=== PATIENT | female | born 1990 | race Caucasian/White ===

== ENCOUNTER 2021-09-16 08:27 | Outpatient (REF) | payer OTHER, SELFPAY ==
[2021-09-16 15:34] LABS: CT PCR NOT DETECTED (Not Detect.); NG PCR NOT DETECTED (Not Detect.)
[2021-09-17 09:44] LABS: BV Int Neg Control Negative (Negative); BV Int Pos Control Positive (Positive)
[2021-09-19 02:47] LABS: HPV mRNA E6/E7 rflx Not Detected (Not Detected)
== END 2021-09-16 08:28 | disposition home or self-care (01) ==
LOC: HO.LAB 08:27
PROVIDERS: PCP Nurse Practitioner Family; Visit Provider Advanced Practice Midwife
DX: Z01.411 Encounter for gynecological examination (general) (routine) with abnormal findings (principal); Z11.51 Encounter for screening for human papillomavirus (HPV); R10.2 Pelvic and perineal pain; Z78.9 Other specified health status
CPT/HCPCS: 87480; 87491; 87510; 87591; 87624; 87660; 88142

== ENCOUNTER 2021-10-19 10:02 | Outpatient (REF) | payer OTHER, SELFPAY ==
--- NOTE | ~2021-10-19 | US_ITS ---
EXAMINATION: US PELVIS CLINICAL INFORMATION: Pelvic and perineal pain COMPARISON: Previous pelvic ultrasound August 2016 TECHNIQUE: Ultrasound of the pelvis is performed using both transabdominal and transvaginal transducers along with Doppler. Transvaginal imaging is performed due to inadequate visualization transabdominally. FINDINGS: Uterus: The uterus is anteverted and measures 8.7 x 4.9 x 6.3 cm. The double wall endometrial thickness is 7 mm. The uterus is smooth in contour and has normal myometrial echogenicity. No visible fibroid. The IUD seen August 2016 is no longer seen. Adnexa: Both ovaries are visualized and are normal-appearing. Right ovary measures 3.5 x 2.1 x 2.8 cm. There is a 1.8 x 1.7 x 1.7 cm simple right ovarian cyst. Left ovary measures 3.3 x 1.8 x 2.3 cm. US/US pelvic and transvaginal IMPRESSION: Normal pelvic ultrasound.
== END 2021-10-19 10:03 | disposition home or self-care (01) ==
LOC: HO.HMGCX 10:02
PROVIDERS: PCP Family Medicine; Visit Provider Advanced Practice Midwife
DX: R10.2 Pelvic and perineal pain (principal); Z78.9 Other specified health status
CPT/HCPCS: 76830; 76856

== ENCOUNTER → 2021-10-21 09:38 | Outpatient (BNVA) | payer OTHER, SELFPAY | PROVIDERS: PCP Family Medicine; Visit Provider Advanced Practice Midwife ==

== ENCOUNTER 2022-02-19 20:28 | Emergency (ER) | payer OTHER, SELFPAY ==
[2022-02-19 20:36] VITALS: BP 118/70; PULSE 75; RESP 17; TEMP 36.4; O2SAT 98; BMI 22.7
--- NOTE | 2022-02-19 22:23 | ED_ITS ---
HPI - Wound/Laceration General Chief Complaint: Wound/Laceration Stated Complaint: lac on finger Time Seen by Provider: 02/19/22 21:23 Source: patient Mode of arrival: ambulatory Limitations: no limitations History of Present Illness HPI narrative: 31-year-old female no significant medical history presents to the emergency department with a small laceration to her left index finger status post cutting herself accidentally with a steak knife. Patient tells me that this was a clean knife. She tells me she is up to date on a tetanus shot. She tells me she has full range of motion to that finger and she is able to feel the finger. Denies numbness or tingling. Onset (ago): hour(s) (2) Location: other (left index finger ) Place: home Patient tetanus UTD: Yes Context: accidental Associated symptoms: none Related Data Previous Rx's Medication Instructions Recorded albuterol sulfate 90 mcg/actuation 2 puff INHALATION Q4-6H PRN 30 08/26/21 aerosol inhaler (ProAir HFA) Days #8.5 g amitriptyline 10 mg tablet 10 mg PO BEDTIME 30 Days #30 tab 08/26/21 [id number]-pjuuifmbaelcj-lpscwusg 1 cap PO Q8H PRN #20 cap 09/09/21 50 mg-300 mg-40 mg capsule (Fioricet) cephalexin 500 mg tablet 500 mg PO Q6H 7 Days #28 tab 02/19/22 doxycycline hyclate 100 mg capsule 100 mg PO BID 7 Days #14 cap 02/19/22 Allergies Allergy/AdvReac Type Severity Reaction Status Date / Time No Known Allergies Allergy Verified 02/19/22 20:34 [No Known Allergies*] Review of Systems Review of Systems: Constitutional : No Fever, No Chills, Cardiovascular : No Chest Pain, No SOB Respiratory : No Dyspnea Gastrointestinal : No abdominal pain Musculoskeletal : No Joint Swelling Skin : No rash, positive skin laceration Neuro : No Weakness, No Numbness Psych : No SI/HI Yes all other systems are reviewed and are negative [facility] Past Medical History Attestation statement: The following information was validated with the patient. Source: old records reviewed and nursing notes reviewed Surgical History History of (~2011) Social History Social History Housing: House Patient Tobacco Use Status: Never used Tobacco e-Cigarette/Vaping Use: Never Used Advance Directives: No Advance Directives Information Provided: No Current occupational status: employed Gender identity: Female Physical Exam Vital Signs: Vital Signs: Last Vital Signs Temp 97.6 F 02/19/22 20:36 Pulse 75 02/19/22 20:36 Resp 17 02/19/22 20:36 BP 118/70 02/19/22 20:36 Pulse Ox 98 02/19/22 20:36 BMI result Body Mass Index 22.7 Vital signs stable. Appearance: Alert.? Oriented X3.? No acute distress.? Head: Normocephalic, atraumatic, no step-offs or deformities Eyes: Pupils equal, round and reactive to light.? ENT: Pharynx normal.? Neck: Normal inspection.? Neck supple.? CVS: Normal heart rate and rhythm.? Pulses normal.? Respiratory: No respiratory distress.? Breath sounds normal.? Abdomen: Soft and nontender.? Skin: Skin warm and dry.? Normal skin color.? Normal skin turgor.?+ 3 cm laceration to the left index finger, less than 2nd capillary refill to that di git, sensation intact, motor intact no gross abnormalities Extremities: No lower extremity edema.? No calf ttp. 5/5 strength to bilateral upper and lower extremities Neuro: Oriented X 3.? No motor deficit.? No sensory deficit. CN 2-12 intact Course Reevaluation(s) Reevaluation #1: Patient initially did not want sutures however I feel as though sutures are appropriate for this patient. She agreed to sutures. Patient refusing x-ray of the hand. At this time patient will be discharged home with antibiotics, advised her to return in 7-10 days for suture removal. Comfortable discharge home Time: 22:26 MDM - Wound/Laceration MDM Narrative Medical decision making narrative: 2224 31-year-old female presents with an accidental laceration to head the distal aspect of left index finger. Up-to-date on tetanus shot. Physical examination significant for + 3 cm laceration to the left index finger, less than 2nd capillary refill to that digit, sensation intact, motor intact no gross abnormalities Plan at this time is x-ray to rule out fracture, suturing. Medical Records Attestation: I reviewed the patient's medical records. Lab Data Attestation: I reviewed the patient's lab results. Critical Care Time Critical Care Time Critical Care Time: No Discharge Plan Discharge Clinical Impression: Laceration Patient Disposition: Home, Self-Care Additional Instructions: Take your medications as prescribed. If you were prescribed antibiotics today, it is important that you take your medication to their entirety, do not skip any doses, do not finish them early. Follow-up with your primary care provider this week. Return in 7-10 days for suture removal. If you notice any signs of infection such as redness, fevers, chills, discharge from the site, swelling, inability to feel your finger please return sooner Return to the emergency department with new or worsening symptoms. Such as feve rs, chills, chest pain, shortness of breath, nausea, vomiting, dizziness, headache, vision changes, lethargy In case of emergency call 911 Prescriptions: New doxycycline hyclate 100 mg capsule 100 mg PO BID 7 Days Qty: 14 0RF cephalexin 500 mg tablet 500 mg PO Q6H 7 Days Qty: 28 0RF No Action [id number]-csbxowtnzvhzd-jmph [Fioricet] 50-300-40 mg capsule 1 cap PO Q8H PRN (Reason: pain) Qty: 20 0RF albuterol sulfate [ProAir HFA] 90 mcg/actuation HFA aerosol inhaler 2 puff inhalation Q4-6H PRN (Reason: shortness of breath or wheezing) 30 Days Qty: 8.5 1RF amitriptyline 10 mg tablet 10 mg PO BEDTIME 30 Days Qty: 30 2RF Referrals: Physician,Unknown J [Primary Care Provider] - Stand Alone Forms: Work/School Release
[2022-02-19] MEDS: Ondansetron ODT 4 MG TAB.RAPDIS TRANSLINGU (22:37)
[2022-02-19] MEDS: Lidocaine HCl 2 % MPF 5 ML VIAL SUBCUT (22:37)
== END 2022-02-19 22:42 | disposition home or self-care (01) ==
PROVIDERS: Emergency Provider Internal Medicine
DX: S61.211A Laceration without foreign body of left index finger without damage to nail, initial encounter (principal); W26.0XXA Contact with knife, initial encounter; Y93.9 Activity, unspecified; Y92.009 Unspecified place in unspecified non-institutional (private) residence as the place of occurrence of the external cause; Y99.9 Unspecified external cause status; Z79.899 Other long term (current) drug therapy
CPT/HCPCS: 12002; 99283; 99284

== ENCOUNTER 2022-03-26 11:55 | Emergency (ER) | payer OTHER, SELFPAY | END 2022-03-26 13:45 | disposition left against medical advice (07) | PROVIDERS: Emergency Provider Emergency Medicine | DX: O26.891 Other specified pregnancy related conditions, first trimester (principal); R10.9 Unspecified abdominal pain; Z3A.01 Less than 8 weeks gestation of pregnancy ==

== ENCOUNTER 2024-02-24 00:26 | Emergency (ER) | payer MEDICAID, SELFPAY ==
[2024-02-24 00:33] VITALS: BP 127/65; PULSE 92; RESP 16; TEMP 36.8; O2SAT 98; BMI 26.6
== END 2024-02-24 00:47 | disposition left against medical advice (07) ==
PROVIDERS: Emergency Provider Emergency Medicine
DX: R11.2 Nausea with vomiting, unspecified (principal); Z53.21 Procedure and treatment not carried out due to patient leaving prior to being seen by health care provider
CPT/HCPCS: 99281

== ENCOUNTER 2024-02-24 05:12 | Inpatient (IN) | payer MEDICAID, SELFPAY ==
[2024-02-24] VITALS (21 sets, daily range): BP systolic 100–122; BP diastolic 45–70; PULSE 63–93; RESP 14–20; TEMP 36.3–37.2; O2SAT 94–100; BMI 26.7
--- NOTE | ~2024-02-24 | CT_ITS ---
EXAMINATION: CT ABDOMEN AND PELVIS WITH CONTRAST CLINICAL INFORMATION: Upper abdominal pain, nausea and vomiting COMPARISON: Ultrasound abdomen 09/14/2016. TECHNIQUE: Multidetector volumetric images were obtained from the superior aspect of the liver through the pubic symphysis following administration 85 mL of Omnipaque 350 intravenous contrast. Sagittal and coronal reformatted images were obtained on the technologist's workstation. Oral contrast: No This CT examination was performed using dose optimization techniques as appropriate, variously including the following: *Automated exposure control *Adjustment of mA and/or kV according to patient size (this includes techniques or standardized protocols for targeted exams where dose is matched to indication/reason for exam; i.e. extremities or head) *Use of iterative reconstruction technique DLP: 575 mGy-cm FINDINGS: LUNG BASES: Minimal left basilar atelectasis. No pleural effusions. LIVER, GALLBLADDER, AND BILIARY TREE: The liver is normal in size, shape, and attenuation. Subcentimeter hypodensities in the right hepatic lobe segment 8 and the left hepatic lobe which are too small to characterize. The gallbladder is unremarkable with no evidence of radiopaque gallstones, gallbladder wall thickening, or obvious pericholecystic inflammatory changes. PANCREAS: Unremarkable. SPLEEN: Unremarkable. ADRENAL GLANDS: Unremarkable. KIDNEYS AND URETERS: The left kidney demonstrates a double collecting system. The right kidney is normal in size and shape. Bilateral renal medullary pyramids calcifications. No renal calculus or hydroureteronephrosis. There is short segment wall enhancement involving the mid to distal right ureter adjacent to the inflammatory changes in the right lower quadrant, series 3 images 49 through 59. BLADDER: Unremarkable. GASTROINTESTINAL TRACT: The appendix is dilated measuring up to 1.4 cm with wall enhancement and moderate surrounding fat stranding, series 3 image 52. There is a hyperattenuating 0.6 cm focus within the dilated appendix which may represent an appendicolith, series 6 image 33. There is wall thickening of the adjacent cecum which is likely reactive. No evidence of free air. No significant free fluid. The stomach and small bowel are nondilated. Moderate colonic stool burden. ABDOMINAL WALL: Small fat-containing umbilical hernia. LYMPH NODES: Few borderline prominent nonenlarged right lower quadrant mesenteric lymph nodes which are likely reactive. There is no abdominopelvic lymphadenopathy. VASCULAR: Abdominal aorta is nonaneurysmal. PELVIC VISCERA: The uterus is not enlarged. The ovaries are not well assessed on CT. However there is 1.8 cm dominant follicle/simple cyst in the right ovary, for which no dedicated follow-up imaging is required.. OSSEOUS STRUCTURES: No acute or suspicious osseous abnormality. CT/CT abdomen pelvis w IV con IMPRESSION: Dilated appendix measuring up to 1.4 cm with wall enhancement and moderate surrounding fat stranding. Few prominent nonenlarged surrounding mesenteric lymph nodes. Findings are concerning for acute appendicitis. No evidence of free air or significant free fluid. Wall thickening of the adjacent cecum which is likely reactive. Short segment wall urothelial enhancement involving the mid to distal right ureter adjacent inflammatory changes in the right lower quadrant which may be reactive. Correlate with urinalysis for to assess for urinary tract infection. Double left renal collecting system. Renal medullary pyramid calcifications bilaterally which can be seen with medullary sponge kidney, hyperparathyroidism or other metabolic disorders. This Critical Result was discussed with Shweta Dick NP at 8:55am on 02/24/2024 and it was ascertained that the content and urgency of the report was understood at the time of direct communication.
[2024-02-24 05:48] LABS: Basophils Percent Auto 0.2 % (0-2); Eosinophils Percent Auto 0.2 % (0-4); Hematocrit 43.6 % (37.0-47.0); Hemoglobin 15.4 g/dl (12.0-16.0); Imm Gran Abs Auto 0.05 X10*3/uL (0.00-0.03); Imm Gran Pct Auto 0.3 % (0.0-0.4); Lymphocytes Absolute Auto 2.2 X10*3/uL (1.2-4.9); Lymphocytes Percent Auto 14.1 % (20-40); MANUAL DIFF FLAG NO; Mean Corpuscular HGB Conc 35.3 g/dl (31.0-35.0); Mean Corpuscular Hemoglobin 31.2 pg (27.0-33.0); Mean Corpuscular Volume 88.4 fL (80.0-98.0); Mean Platelet Volume 10.7 fL (9.4-12.3); Monocytes Percent Auto 6.1 % (2-11); Neutrophils Absolute Auto 12.5 x10*3/uL (2.0-8.3); Neutrophils Percent Auto 79.1 % (45-73); Platelet Count 220 X10*3/uL (160-400); Red Blood Count 4.93 X10*6/uL (4.20-5.50); Red Cell Distribution Width 11.8 % (11.0-16.0); White Blood Count 15.8 X10*3/uL (4.8-10.8)
[2024-02-24 06:02] LABS: Alanine Aminotransferase 10 U/L (0-31); Albumin Level 4.7 g/dL (3.5-5.0); Alkaline Phosphatase 85 U/L (39-117); Anion Gap 13 (12-20); Aspartate Amino Transferase 13 U/L (5-31); Bilirubin Total 0.8 mg/dL (0.0-1.0); Blood Urea Nitrogen 5 mg/dL (9-16); Carbon Dioxide 29 mmol/L (22-29); Chloride 101 mmol/L (96-108); Creatinine Clr Calc Pharmacy 123.8; Estimated Glomerular Filt Rate > 60; Glucose Random 113 mg/dL (60-115); Lipase 18 U/L (8-78); Potassium 3.5 mmol/L (3.3-5.1); Sodium 139 mmol/L (135-145); Total Protein 8.7 g/dL (6.5-8.0)
[2024-02-24 06:02] LABS: Appearance Urine Clear; Color Urine Yellow; Glucose Urine UA Negative (Negative); Leukocyte Esterase Urine Negative (Negative); Nitrite Urine Negative (Negative); PH 8.5 (5.0-9.0); Specific Gravity - Urine <= 1.005 (1.005-1.025); Urine Blood Negative (Negative); Urine Ketones Trace mg/dL (Negative); Urine Protein Negative (Neg-Trace)
[2024-02-24 06:04] LABS: UPreg QC Valid YES; Urine Pregnancy NEGATIVE (NEGATIVE)
[2024-02-24 06:07] LABS: Bacteria Urine None Seen (None Seen); Hyaline Casts Urine 0-2 /LPF (0-2); RBC Urine 0-2 /HPF (0-2); Squamous Epithelial Cell Urine 0-2 /HPF (0-2); WBC Urine 0-5 /HPF (0-5)
--- NOTE | 2024-02-24 06:58 | ED_ITS ---
HPI - Abdominal Pain General Chief Complaint: Abdominal Pain Stated Complaint: gen med Time Seen by Provider: 02/24/24 06:24 Source: patient Mode of arrival: ambulatory Limitations: no limitations History of Present Illness HPI narrative: Patient is a 33-year-old female who presents to the emergency department for evaluation of diffuse upper abdominal pain. She reports pain to be severe for the past 2 days. She reports that she took plxn-ezc-roleqkz physician's choice digestive enzymes with prebiotics and probiotics (this came as a recommendation from a doctor she was previously seeing due to constant bloated sensation with many different foods). The first day she took them she felt okay, the 2nd day she began developing this pain with nausea and vomiting. Reports she is unable to tolerate eating at all without vomiting. She has trialed Pepcid Zofran and Tums at home without any relief. Related Data Home Medications ?Medication ?Instructions ?Recorded ?Confirmed dextroamphetamine-amphetamine 10 1 tab PO QAM 02/24/24 02/24/24 mg tablet Allergies Allergy/AdvReac Type Severity Reaction Status Date / Time No Known Allergies Allergy Verified 02/24/24 14:34 [No Known Allergies*] Review of Systems Review of Systems Yes all other systems are reviewed and are negative [facility] Past Medical History Attestation statement: The following information was validated with the patient. Source: old records reviewed Surgical History History of (~2011) Social History Social History Housing: House Patient Tobacco Use Status: Never used Tobacco Smoked in Last 30 Days: No e-Cigarette/Vaping Use: Never Used Use of substances other than those prescribed or required for medical reasons: Yes Substance Use Frequency: Daily Are you DNR?: No Advance Directives: No Advance Directives Information Provided: No Patient : No Current occupational status: employed Gender identity: Female Physical Exam ED Vital Signs: Vital Signs - 24 hr 02/24/24 05:16 02/24/24 08:20 02/24/24 10:55 Temperature 98.3 F Pulse Rate 91 78 69 Respiratory Rate 18 15 16 Blood Pressure 117/67 105/54 L 100/49 L Pulse Oximetry 97 100 99 Oxygen Delivery Method Room Air Room Air Room Air 02/24/24 14:35 Temperature 98.9 F Pulse Rate 77 Respiratory Rate 16 Blood Pressure 118/70 Pulse Oximetry 98 Oxygen Delivery Method Room Air BMI result Body Mass Index 26.7 Appearance: Alert.?Oriented to person, place and time. No acute distress.?Normal affect. Eyes: Pupils equal, round and reactive to light.? ENT: Pharynx normal.?? Neck: Normal inspection.? Neck supple.?? CVS: Heart sounds normal. Normal heart rate and rhythm.? Pulses normal.?? Respiratory: No respiratory distress.? Lung sounds clear to auscultation bilaterally?? Abdomen: Soft with diffuse upper abdominal tenderness and RLQ tenderness upon palpation. Negative Reyes sign. No rigidity. Mild guarding.. Normoactive bowel sounds. No pulsatile mass.??No CVA tenderness Skin: Skin warm and dry.? Normal skin color.? Extremities: No lower extremity edema.? Neuro: Moves all extremities spontaneously. Sensation intact bilaterally. CN II- XII intact. No focal neuro deficits. Ambulates with normal steady gait. Course Reevaluation(s) Reevaluation #1: Received call from radiology, CT concerning for acute appendicitis, uncomplicated. Patient updated on these findings. Covered with ceftriaxone and metronidazole. Consulting general surgery; Dr. Cifuentes. Time: 08:55 Reevaluation #2: Patient was evaluated by Dr. Baca, plan for laparoscopic possible open appendectomy due to presence of fecalith and unlikely to have response to antibiotics. Patient agreeable for surgery. Medical Decision Making Medical Decision Making MDM Narrative: Patient is a 33-year-old female who presents emergency department for evaluation of upper abdominal pain with nausea and vomiting as per HPI. At the time my examination she appears significantly uncomfortable, she is in tears, is known to be guarding the upper abdomen and actively dry heaving. Will obtain CBC to evaluate for leukocytosis/ anemia, CMP and lipase to evaluate for abnormal electrolytes /abnormal renal function/ abnormal hepatic/biliary function, CT of the abdomen and pelvis and Urinalysis. Will trial management of symptoms at this time with Reglan/Toradol/Pepcid IV, in addition to Maalox with lidocaine viscous. Differential Diagnosis Differential Diagnoses: The differential diagnosis associated with the presentation includes (Gastritis, PUD, cholelithiasis, cholecystitis, pancreatitis, appendicitis, gastroenteritis, viral syndrome. Suspect less likely SBO) Admission/Observation Consideration of admission/observation: Escalation of care including admission/observation considered (See narrative above and course narrative for further detail) Consult Healthcare Provider Management of the patient was discussed with: [employer] Program Specialist (See course narrative) Lab Data MDM Lab Attestation statement: I reviewed the patient's lab results. CBC reveals leukocytosis with left shift, no anemia, no electrolyte derangement, no ZUHAIR, LFTs within normal range. Urinalysis without evidence of infection. HCG negative. 02/24/24 05:42 02/24/24 05:42 Labs: Lab Results 02/24/24 02/24/24 02/24/24 Range/Units 05:42 05:43 09:33 WBC 15.8 H (4.8-10.8) X10*3/uL RBC 4.93 (4.20-5.50) X10*6/uL Hgb 15.4 (12.0-16.0) g/dl Hct 43.6 (37.0-47.0) % MCV 88.4 (80.0-98.0) fL MCH 31.2 (27.0-33.0) pg MCHC 35.3 H (31.0-35.0) g/dl RDW 11.8 (11.0-16.0) % Plt Count 220 (160-400) X10*3/uL MPV 10.7 (9.4-12.3) fL Immature Gran % (Auto) 0.3 (0.0-0.4) % Neut % (Auto) 79.1 H (45-73) % Lymph % (Auto) 14.1 L (20-40) % Walker % (Auto) 6.1 (2-11) % Eos % (Auto) 0.2 (0-4) % Baso % (Auto) 0.2 (0-2) % Lymph # (Auto) 2.2 (1.2-4.9) X10*3/uL Walker # (Auto) 1.0 (0.1-1.2) X10*3/uL Eos # (Auto) 0.0 (0.0-0.4) X10*3/uL Baso # (Auto) 0.0 (0.0-0.2) X10*3/uL Abs Immat Gran (auto) 0.05 H (0.00-0.03) X10*3/uL Absolute Neuts (auto) 12.5 H (2.0-8.3) x10*3/uL Absolute Nucleated RBC 0.000 (0.0-0.012) X10*3/uL Nucleated RBC % (auto) 0.0 (0.0-0.2) /100WBC Sodium 139 (135-145) mmol/L Potassium 3.5 (3.3-5.1) mmol/L Chloride 101 (96-108) mmol/L Carbon Dioxide 29 (22-29) mmol/L Anion Gap 13 (12-20) BUN 5 L (9-16) mg/dL Creatinine 0.68 (0.5-1.4) mg/dL Estim Creat Clear Calc 123.8 Estimated GFR > 60 Random Glucose 113 (60-115) mg/dL Lactic Acid 1.0 (0.5-2.0) mmol/L Calcium 10.0 (8.4-10.2) mg/dL Total Bilirubin 0.8 (0.0-1.0) mg/dL AST 13 (5-31) U/L ALT 10 (0-31) U/L Alkaline Phosphatase 85 (39-117) U/L Total Protein 8.7 H (6.5-8.0) g/dL Albumin 4.7 (3.5-5.0) g/dL Lipase 18 (8-78) U/L Urine Color Yellow Urine Appearance Clear Urine pH 8.5 (5.0-9.0) Ur Specific [place] <= 1.005 (1.005-1.025) Urine Protein Negative (Neg-Trace) mg/dL Urine Glucose (UA) Negative (Negative) mg/dL Urine Ketones Trace (Negative) mg/dL Urine Blood Negative (Negative) Urine Nitrite Negative (Negative) Ur Leukocyte Esterase Negative (Negative) Urine RBC 0-2 (0-2) /HPF Urine WBC 0-5 (0-5) /HPF Ur Squamous Epith Cells 0-2 (0-2) /HPF Urine Bacteria None Seen (None Seen) Hyaline Casts 0-2 (0-2) /LPF Urine Test NEGATIVE (NEGATIVE) Independent Interpretation I performed an independent interpretation of an: CT Scan (No cholelithiasis, cholecystitis. No free air.) Radiology Impression Discussion of test interpretation with radiology: I have reviewed the radiologist's reading. Radiologist Impression: CT/CT abdomen pelvis w IV con IMPRESSION: Dilated appendix measuring up to 1.4 cm with wall enhancement and moderate surrounding fat stranding. Few prominent nonenlarged surrounding mesenteric lymph nodes. Findings are concerning for acute appendicitis. No evidence of free air or significant free fluid. Wall thickening of the adjacent cecum which is likely reactive. Short segment wall urothelial enhancement involving the mid to distal right ureter adjacent inflammatory changes in the right lower quadrant which may be reactive. Correlate with urinalysis for to assess for urinary tract infection. Double left renal collecting system. Renal medullary pyramid calcifications bilaterally which can be seen with medullary sponge kidney, hyperparathyroidism or other metabolic disorders. Medications Administered Generic Name Dose Route Start Last Admin Trade Name Freq PRN Reason Stop Dose Admin Acetaminophen 1,000 mg in 100 mls @ 400 mls/hr 02/24/24 10:30 02/24/24 11:54 Ofirmev IV 02/25/24 04:44 Infused Q6H JOCELYN Infusion Dextrose/Lactated Ringer's 1,000 mls @ 125 mls/hr 02/24/24 10:30 02/24/24 12:40 D5lr IVCONT 125 mls/hr .Q8H JOCELYN Administration Discontinued Medications Generic Name Dose Route Start Last Admin Trade Name Freq PRN Reason Stop Dose Admin Al Hydroxide/Mg Hydroxide 30 ml 02/24/24 06:50 02/24/24 07:13 Magnesium Hydrox/Alum Hydrox 30 Ml Oral.Susp PO 02/24/24 06:51 30 ml ONCE ONE Administration Famotidine 20 mg 02/24/24 06:50 02/24/24 07:15 Famotidine/Pf 20 Mg/2 Ml Vial IVPUSH 02/24/24 06:51 20 mg ONCE ONE Administration Sodium Chloride 1,000 mls @ 999 mls/hr 02/24/24 08:00 02/24/24 10:09 Ns IV 02/24/24 09:00 Infused .Q1H1M JOCELYN Infusion Ceftriaxone Sodium 1 gm/ 50 mls @ 100 mls/hr 02/24/24 09:03 02/24/24 10:39 Sodium Chloride IV 02/24/24 09:32 Infused ONCE ONE Infusion Metronidazole 500 mg in 100 mls @ 100 mls/hr 02/24/24 09:03 02/24/24 11:43 Flagyl IV 02/24/24 10:02 Infused ONCE ONE Infusion Iohexol 100 ml 02/24/24 08:19 02/24/24 08:19 Iohexol 350 Mg/Ml 100 Ml Infus..Btl IV 02/24/24 08:20 85 ml ONCE ONE Administration Ketorolac Tromethamine 30 mg 02/24/24 06:50 02/24/24 07:09 Ketorolac Tromethamine 30 Mg/Ml Vial IVPUSH 02/24/24 06:51 30 mg ONCE ONE Administration Lidocaine HCl 15 ml 02/24/24 06:50 02/24/24 07:13 Lidocaine Hcl Viscous 2 % 15 Ml Solution MUCOUS MEM 02/24/24 06:51 15 ml ONCE ONE Administration Lidocaine HCl 1 appl 02/24/24 10:41 02/24/24 10:46 Lidocaine 4 % Cream Kit TOPICAL 02/24/24 10:42 1 appl ONCE ONE Administration Protocol Metoclopramide HCl 10 mg 02/24/24 06:50 02/24/24 07:10 Metoclopramide Hcl 10 Mg/2 Ml Vial IVPUSH 02/24/24 06:51 10 mg ONCE ONE Administration Scopolamine 1.5 mg 02/24/24 14:57 02/24/24 14:51 Scopolamine 1.5 Mg Patch.Td.3 EAR-BEHIND 02/24/24 14:58 1.5 mg ONCE ONE Administration Critical Care Time Critical Care Time Critical Care Time: Yes Total Critical Care Time: 45 Attestation: I personally attest to this critical care time spent taking care of the patient exclusive of all other billable procedures was approximately 45 minutes including initial evaluation of patient, ordering tests, CT interpretation, pain management, medical consultation, documentation, re-evaluation. Discharge Plan Discharge Clinical Impression: Acute appendicitis Patient Disposition: Admitted As Inpatient Interventions: Admission Worksheet (ED) Last Done: 02/24/24 14:41
[2024-02-24] MEDS: Ketorolac Tromethamine 30 MG/ML VIAL IVPUSH (07:09)
[2024-02-24] MEDS: Metoclopramide HCl 10 MG/2 ML VIAL IVPUSH (07:10)
[2024-02-24] MEDS: Magnesium Hydrox/Alum Hydrox 30 ML ORAL.SUSP PO (07:13)
[2024-02-24] MEDS: Lidocaine HCl Viscous 2 % 15 ML SOLUTION MUCOUS MEM (07:13)
[2024-02-24] MEDS: Famotidine/PF 20 MG/2 ML VIAL IVPUSH (07:15)
[2024-02-24] MEDS: 0.9 % Sodium Chloride 1,000 ML 999 ML IV (08:10)
[2024-02-24] MEDS: iohexoL 350 MG/ML 100 ML INFUS..BTL IV (08:19)
[2024-02-24] MEDS: cefTRIAXone sodium 1 GM in 0.9 % Sodium Chloride 50 ML IV (09:48)
--- NOTE | 2024-02-24 10:13 | PM.HPGS ---
History of Present Illness History of Present Illness Date of Service: 02/24/24 Chief complaint: gen med Narrative: Charles Abreu is a 33 year old female presenting with a 2 day history of abdominal pain beginning in a periumbilical location but now localized more to the right lower quadrant. The pain was associated with nausea and vomiting but no fever or chills. She denies a previous history of similar symptoms. She subsequently presented to the emergency department and was noted to be tender in the lower right abdomen. Laboratories revealed an elevated WBC. CT abdomen and pelvis revealed a markedly inflamed appendix with a fecalith within the appendix. Findings are suggestive of acute appendicitis. She is admitted to the surgical service for further management of acute appendicitis. Review of Systems Review of Systems: Yes all other systems are reviewed and are negative Gastrointestinal: Gastrointestinal: Reports as per HPI and Reports abdominal pain PMFSH Surgical History Surgical History History of (~2011) Social History Social History Housing: House Patient Tobacco Use Status: Never used Tobacco Smoked in Last 30 Days: No e-Cigarette/Vaping Use: Never Used Advance Directives: No Advance Directives Information Provided: No Patient : No Current occupational status: employed Gender identity: Female Meds Allergies Allergy/AdvReac Type Severity Reaction Status Date / Time No Known Allergies Allergy Verified 02/24/24 05:17 [No Known Allergies*] Physical Exam Vital Signs: Vital Signs: Last Vital Signs Temp 98.3 F 02/24/24 05:16 Pulse 78 02/24/24 08:20 Resp 15 02/24/24 08:20 BP 105/54 L 02/24/24 08:20 Pulse Ox 100 02/24/24 08:20 O2 Del Method Room Air 02/24/24 08:20 BMI result Body Mass Index 26.7 Const: General: cooperative and no acute distress Nutritional Appearance: well nourished Orientation/consciousness: patient oriented x3 Limitations: no limitations HEENT: Head: Yes normocephalic and Yes atraumatic Ears: hearing grossly normal bilaterally Resp: Effort & Inspection: normal respiratory effort, no audible wheezes, no cough and no respiratory distress Cardio: Jugular venous distension: no JVD GI: Inspection: Yes normal to inspection Palpation (GI): Soft to palpation and Tenderness to palpation present (GI) in the RLQ, at McBurney's point and Rovsing's sign positive; with no rebound tenderness Percussion: Yes normal to percussion Auscultation: normal bowel sounds Rectal Exam - Female: deferred Skin: Other: Warm, dry, no rash Neuro: General: patient oriented x3 Extrem: General: Yes no clubbing, cyanosis or edema Results Results Labs: Short CBC 02/24/24 Range/Units 05:42 WBC 15.8 H (4.8-10.8) X10*3/uL Hgb 15.4 (12.0-16.0) g/dl Hct 43.6 (37.0-47.0) % Plt Count 220 (160-400) X10*3/uL BMP 02/24/24 05:42 Sodium 139 Potassium 3.5 Chloride 101 Carbon Dioxide 29 BUN 5 L Creatinine 0.68 Calcium 10.0 Liver Function 02/24/24 Range/Units 05:42 Total Bilirubin 0.8 (0.0-1.0) mg/dL AST 13 (5-31) U/L ALT 10 (0-31) U/L Alkaline Phosphatase 85 (39-117) U/L Albumin 4.7 (3.5-5.0) g/dL Urine 02/24/24 Range/Units 05:43 Urine Color Yellow Urine Appearance Clear Urine pH 8.5 (5.0-9.0) Ur Specific [place] <= 1.005 (1.005-1.025) Urine Protein Negative (Neg-Trace) mg/dL Urine Glucose (UA) Negative (Negative) mg/dL Urine Test NEGATIVE (NEGATIVE) Assessment and Plan (1) Acute appendicitis: Qualifiers: Acute appendicitis type: with localized peritonitis Appendicitis gangrene presence: unspecified whether gangrene present Appendicitis perforation presence: unspecified whether perforation present Appendicitis abscess presence: unspecified whether abscess present Qualified Code(s): K35.30 - Acute appendicitis with localized peritonitis, without perforation or gangrene Status: Acute Plan 33-year-old female patient presenting with a 2 day history of abdominal pain in the right lower quadrant found on workup to have tenderness in the right lower quadrant over McBurney's point. Workup with laboratories revealed an elevated WBC and CT abdomen and pelvis is consistent with acute appendicitis with a fecalith. I recommended a laparoscopic or possible open appendectomy given the presence of the fecalith which is unlikely to improve with antibiotics. After discussion of the procedure, risks, and alternatives, she consents to the laparoscopic or possible open appendectomy. Quality Stroke Does the patient have a stroke diagnosis?: No VTE Prior VTE?: No VTE Risk Level:: Surgical - low VTE Device Contraindication: N/A - Device Ordered VTE Drug Contraindication: Treatment Not Indicated Procedures Date of Service Date of Service: 02/24/24
[2024-02-24] MEDS: metroNIDAZOLE/NS 500 MG/100 ML PIGGYBACK 100 MG IV (10:31)
[2024-02-24] MEDS: Lidocaine 4 % Cream KIT 1 APPL TOPICAL (10:46)
[2024-02-24] MEDS: Acetaminophen 1,000 MG/100 ML PIGGYBACK 400 MG IV ×2 (11:31→18:57)
--- NOTE | 2024-02-24 12:23 | PHA.MEDREC ---
Pharmacy Consult ? Medication Reconciliation Pharmacy has completed the medication reconciliation. Spoke with patient to confirm meds.
[2024-02-24] MEDS: Dextrose 5 % and Lactated Ring 1,000 ML 125 ML IVCONT ×2 (12:40→18:58)
--- NOTE | 2024-02-24 14:21 | P.CONAN_ITS ---
[facility] Active Problems Active Problems: All Active Problems Acute appendicitis (Acute) Acute appendicitis (Acute) Cervical cancer screening (Acute) Encounter for IUD removal (Acute) Uses fertility awareness method as primary control method (Acute) Counseling for control, intrauterine device (Acute) Well woman exam with routine gynecological exam (Acute) Adnexal tenderness, left (Acute) Heart palpitations (Acute) Shortness of breath (Acute) History of COVID-19 (Acute) Cough (Acute) Lyme disease (Acute) ADD (attention deficit disorder) (Acute) Headache (Acute) Laboratory exam ordered as part of routine general medical examination (Acute) Past Medical History Functional capacity: independent ambulation Patient : No Family History Family history of problems with anesthesia: No Surgical History Surgical History History of (~2011) History of Problems with Anesthesia: No Social History Social History Housing: House Patient Tobacco Use Status: Never used Tobacco e-Cigarette/Vaping Use: Never Used Current occupational status: employed Gender identity: Female Meds Allergies Allergy/AdvReac Type Severity Reaction Status Date / Time No Known Allergies Allergy Verified 02/24/24 14:34 [No Known Allergies*] Active Medications: Current Medications Hydromorphone HCl (Hydromorphone Hcl 0.5 Mg/0.5 Ml Syringe) 0.5 mg IVPUSH Q3H PRN; Protocol PRN Reason: Pain, Severe (Pain Scale 7-10) Acetaminophen (Ofirmev) 1,000 mg in 100 mls @ 400 mls/hr IV Q6H JOCELYN Stop: 02/25/24 04:44 Last Infusion: 02/24/24 11:54 Dose: Infused Dextrose/Lactated Ringer's (D5lr) 1,000 mls @ 125 mls/hr IVCONT .Q8H [facility] Last Admin: 02/24/24 12:40 Dose: 125 mls/hr Ondansetron HCl (Ondansetron Hcl 4 Mg/2 Ml Vial) 4 mg IVPUSH QID PRN PRN Reason: Nausea Home Medications ?Medication ?Instructions ?Recorded ?Confirmed ?Last Taken ?Type dextroamphetamine-amphetamine 10 1 tab PO QAM 02/24/24 02/24/24 Unknown History mg tablet Exam Height,Weight and Vital Signs: Height 5 ft 7 in Weight 77.467 kg Last Vital Signs Temp 98.3 F 02/24/24 05:16 Pulse 69 02/24/24 10:55 Resp 16 02/24/24 10:55 BP 100/49 L 02/24/24 10:55 Pulse Ox 99 02/24/24 10:55 O2 Del Method Room Air 02/24/24 10:55 Pertinent Lab Results Pertinent Lab Results: Laboratory Tests 02/24/24 02/24/24 02/24/24 05:42 05:43 09:33 WBC 15.8 H RBC 4.93 Hgb 15.4 Hct 43.6 MCV 88.4 MCH 31.2 MCHC 35.3 H RDW 11.8 Plt Count 220 MPV 10.7 Immature Gran % (Auto) 0.3 Neut % (Auto) 79.1 H Lymph % (Auto) 14.1 L [place] % (Auto) 6.1 Eos % (Auto) 0.2 Baso % (Auto) 0.2 Lymph # (Auto) 2.2 [place] # (Auto) 1.0 Eos # (Auto) 0.0 Baso # (Auto) 0.0 Abs Immat Gran (auto) 0.05 H Absolute Neuts (auto) 12.5 H Absolute Nucleated RBC 0.000 Nucleated RBC % (auto) 0.0 Sodium 139 Potassium 3.5 Chloride 101 Carbon Dioxide 29 Anion Gap 13 BUN 5 L Creatinine 0.68 Estim Creat Clear Calc 123.8 Estimated GFR > 60 Random Glucose 113 Lactic Acid 1.0 Calcium 10.0 Total Bilirubin 0.8 AST 13 ALT 10 Alkaline Phosphatase 85 Total Protein 8.7 H Albumin 4.7 Lipase 18 Urine Color Yellow Urine Appearance Clear Urine pH 8.5 Ur Specific [place] <= 1.005 Urine Protein Negative Urine Glucose (UA) Negative Urine Ketones Trace Urine Blood Negative Urine Nitrite Negative Ur Leukocyte Esterase Negative Urine RBC 0-2 Urine WBC 0-5 Ur Squamous Epith Cells 0-2 Urine Bacteria None Seen Hyaline Casts 0-2 Urine Test NEGATIVE Airway Mallampati Class: II TM Dist: >3cm Neck ROM: Full Heart: RRR Lungs: CTA Assessment and Plan Final Anesthetic Review Family History of Problems with Anesthesia: No History of Problems with Anesthesia: No ASA Class: II and Emergency Final Preanesthetic Review: Anes Risks/Benef Reviewed Patient Risk: Low Procedure Risk: Low Anesthetic Plan Anesthetic Plan: GA Disposition: Standard PACU
[2024-02-24] MEDS: Scopolamine 1.5 MG PATCH.TD.3 EAR-BEHIND (14:51)
--- NOTE | 2024-02-24 14:51 | PC.NURSE ---
Patient arrived to preop from ED. # 20 PRN angio present in left AC. Site asymptomatic, flushed well.
--- NOTE | 2024-02-24 15:00 | PC.NURSE ---
Patient unable to remove nose ring in preop. Dr. Perales aware. Okay to proceed to surgery per her. Lexy OR nurse aware.
--- NOTE | 2024-02-24 15:32 | P.CONAN_ITS ---
[facility] Active Problems Active Problems: All Active Problems Acute appendicitis (Acute) Acute appendicitis (Acute) Cervical cancer screening (Acute) Encounter for IUD removal (Acute) Uses fertility awareness method as primary control method (Acute) Counseling for control, intrauterine device (Acute) Well woman exam with routine gynecological exam (Acute) Adnexal tenderness, left (Acute) Heart palpitations (Acute) Shortness of breath (Acute) History of COVID-19 (Acute) Cough (Acute) Lyme disease (Acute) ADD (attention deficit disorder) (Acute) Headache (Acute) Laboratory exam ordered as part of routine general medical examination (Acute) Past Medical History Functional capacity: independent ambulation Family History Family history of problems with anesthesia: No Surgical History Surgical History History of (~2011) History of Problems with Anesthesia: No Social History Social History Housing: House Patient Tobacco Use Status: Never used Tobacco Smoked in Last 30 Days: No e-Cigarette/Vaping Use: Never Used Use of substances other than those prescribed or required for medical reasons: Yes Substance Use Frequency: Daily Are you DNR?: No Advance Directives: No Advance Directives Information Provided: No Patient : No Current occupational status: employed Gender identity: Female Meds Allergies Allergy/AdvReac Type Severity Reaction Status Date / Time No Known Allergies Allergy Verified 02/24/24 14:34 [No Known Allergies*] Active Medications: Current Medications Fentanyl (Fentanyl Citrate/Pf 100 Mcg/2 Ml Vial) 25 mcg IVPUSH Q5M PRN; Protocol PRN Reason: Pain, Moderate(Pain Scale 4-6) Stop: 02/24/24 20:57 Hydromorphone HCl (Hydromorphone Hcl 0.5 Mg/0.5 Ml Syringe) 0.5 mg IVPUSH Q3H PRN; Protocol PRN Reason: Pain, Severe (Pain Scale 7-10) Acetaminophen (Ofirmev) 1,000 mg in 100 mls @ 400 mls/hr IV Q6H JOCELYN Stop: 02/25/24 04:44 Last Infusion: 02/24/24 11:54 Dose: Infused Dextrose/Lactated Ringer's (D5lr) 1,000 mls @ 125 mls/hr IVCONT .Q8H JOCELYN Last Admin: 02/24/24 12:40 Dose: 125 mls/hr Ondansetron HCl (Ondansetron Hcl 4 Mg/2 Ml Vial) 4 mg IVPUSH QID PRN PRN Reason: Nausea Ondansetron HCl (Ondansetron Hcl 4 Mg/2 Ml Vial) 4 mg IVPUSH ONCE PRN PRN Reason: Nausea and Vomiting Stop: 02/24/24 20:58 Home Medications ?Medication ?Instructions ?Recorded ?Confirmed ?Last Taken ?Type dextroamphetamine-amphetamine 10 1 tab PO QAM 02/24/24 02/24/24 02/21/24 History mg tablet Exam Height,Weight and Vital Signs: Height 5 ft 7 in Weight 77.467 kg Last Vital Signs Temp 98.9 F 02/24/24 14:35 Pulse 77 02/24/24 14:35 Resp 16 02/24/24 14:35 BP 118/70 02/24/24 14:35 Pulse Ox 98 02/24/24 14:35 O2 Del Method Room Air 02/24/24 14:35 Pertinent Lab Results Pertinent Lab Results: Laboratory Tests 02/24/24 02/24/24 02/24/24 05:42 05:43 09:33 WBC 15.8 H RBC 4.93 Hgb 15.4 Hct 43.6 MCV 88.4 MCH 31.2 MCHC 35.3 H RDW 11.8 Plt Count 220 MPV 10.7 Immature Gran % (Auto) 0.3 Neut % (Auto) 79.1 H Lymph % (Auto) 14.1 L [place] % (Auto) 6.1 Eos % (Auto) 0.2 Baso % (Auto) 0.2 Lymph # (Auto) 2.2 [place] # (Auto) 1.0 Eos # (Auto) 0.0 Baso # (Auto) 0.0 Abs Immat Gran (auto) 0.05 H Absolute Neuts (auto) 12.5 H Absolute Nucleated RBC 0.000 Nucleated RBC % (auto) 0.0 Sodium 139 Potassium 3.5 Chloride 101 Carbon Dioxide 29 Anion Gap 13 BUN 5 L Creatinine 0.68 Estim Creat Clear Calc 123.8 Estimated GFR > 60 Random Glucose 113 Lactic Acid 1.0 Calcium 10.0 Total Bilirubin 0.8 AST 13 ALT 10 Alkaline Phosphatase 85 Total Protein 8.7 H Albumin 4.7 Lipase 18 Urine Color Yellow Urine Appearance Clear Urine pH 8.5 Ur Specific [place] <= 1.005 Urine Protein Negative Urine Glucose (UA) Negative Urine Ketones Trace Urine Blood Negative Urine Nitrite Negative Ur Leukocyte Esterase Negative Urine RBC 0-2 Urine WBC 0-5 Ur Squamous Epith Cells 0-2 Urine Bacteria None Seen Hyaline Casts 0-2 Urine Test NEGATIVE Airway Mallampati Class: II TM Dist: >3cm Neck ROM: Full Heart: RRR Lungs: CTA Assessment and Plan Assessment Anesthesia Assessment: Anesthesia Plan Discussed and Smoking Cess. Discussed Final Anesthetic Review Family History of Problems with Anesthesia: No History of Problems with Anesthesia: No NPO: Yes ASA Class: II and Emergency Final Preanesthetic Review: Meds/Allgs Chart Reviewed, Consent Obtained/Reviewed and Anes Risks/Benef Reviewed Patient Risk: Intermediate Procedure Risk: Low Anesthetic Plan Anesthetic Plan: GA Disposition: Standard PACU
--- NOTE | 2024-02-24 16:45 | W.PM.OPN ---
Operative Note Operative Note Date of Service: 02/24/24 Narrative: Preoperative diagnosis: Acute appendicitis Postoperative diagnosis: Same Procedure: Laparoscopic appendectomy Surgeon: Gold Baca MD Marketing Sales Representative: Sharri Sood PA-C Anesthesia: General endotracheal Indications for procedure: 33-year-old female patient presenting with complaints of right lower quadrant abdominal pain found to have acute appendicitis by CT. She presents now for laparoscopic or possible open appendectomy. Operative findings: Acutely inflamed appendix wrapped within the mesentery of the terminal ileum with surrounding phlegmon Specimen: Appendix Estimated blood loss: 5 mL Complications: None Procedure details: Patient was brought to the OR and placed in a supine position. After administering general anesthesia the patient's abdomen was prepped with ChloraPrep and draped in a sterile fashion. A surgical time-out was called and consent confirmed. Patient received preoperative antibiotics and Venodyne boots were in place. Local anesthesia consisting of 0.5% Sensorcaine with epinephrine was infiltrated in periumbilical region. A 5 mm incision was made below the umbilicus and carried down through subcutaneous tissue. A Veress needle was then inserted while elevating abdominal cavity with towel clips. After a positive drop test the abdomen was insufflated to a pressure of 15 mm of mercury. The Veress needle was removed and a 5 mm trocar inserted. The camera was then inserted in the abdomen explored. A 2nd 5 mm trocars placed in the lower midline. A 12 mm trocar was then placed in the left lower quadrant. The patient was then placed in a Trendelenburg position and rotated to the left. The appendix was identified in the right lower quadrant and brought up using blunt dissecting clamps. The appendix was noted to be wrapped around the mesentery of the terminal ileum in the right lower quadrant. Using the LigaSure the mesentery was mobilized and the appendix elevated. The mesentery of the appendix was then divided using the LigaSure. The appendiceal artery was cauterized and divided using the LigaSure. Dissection was continued down to the base of the cecum. An Endo-KALIE stapler with a purple reload was then used to divide the appendix at the base with the cecum. The appendix was then placed in Endo-Catch bag and brought out through the left lower quadrant incision. The abdomen was then irrigated with saline solution and suctioned dry. Wounds were checked for hemostasis. CO2 was then evacuated from the abdominal cavity and all trocars removed. Fascia was closed in the left lower quadrant incision using a [id number]-or-tushw 0 Polysorb suture. Skin was closed at all incisions using a subcuticular 4-0 Polysorb suture. Steri-Strips 2 x 2 gauze and Tegaderm were then applied. The patient tolerated the procedure well. Sponge, instrument, needle counts reported as correct. The patient was transferred to PACU in stable condition.
[2024-02-24] MEDS: HYDROmorphone HCl 0.5 MG/0.5 ML SYRINGE IVPUSH ×2 (17:21→20:40)
[2024-02-24] MEDS: ondansetron HCL 4 MG/2 ML VIAL IVPUSH (17:21)
[2024-02-25] MEDS: HYDROmorphone HCl 0.5 MG/0.5 ML SYRINGE IVPUSH (01:31)
[2024-02-25] MEDS: Dextrose 5 % and Lactated Ring 1,000 ML 125 ML IVCONT (01:34)
[2024-02-25 03:17] VITALS: BP 104/53; PULSE 60; RESP 16; TEMP 36.7; O2SAT 94
[2024-02-25 07:50] VITALS: BP 102/53; PULSE 59; RESP 16; TEMP 37.1; O2SAT 96
[2024-02-25] MEDS: oxyCODONE HCl Immed Release 5 MG TABLET PO ×2 (08:41→19:52)
[2024-02-25] MEDS: ondansetron HCL 4 MG/2 ML VIAL IVPUSH (09:18)
--- NOTE | 2024-02-25 09:22 | MHC.CM.PN ---
EMR REVIEWED,PT ADMITTED S/P LAP APPENDECTOMY FOR PAIN MANAGEMENT, CM MET W/PT WHO REPORTS SHE LIVES W/S.O. AND HER CHILDREN, PT IS FULLY INDEP, NO DME/SERVICES, GOAL FOR DC IS TO DISCHARGE HOME WHEN PAIN IS MANAGED. PT VERIFIES SHE HER PCP IS OLIVIA ROMERO, [facility] [place] AND PT COMPLETED A HCP NAMING HER S.O. LINDA BAILEY [phone], NO ALTERNATE CHOSEN, COPY UPLOADED TO [facility] AND PLACED IN PAPER CHART. ANTIC PT WILL DC TOMORROW 02/25 HOME SELF CARE AND S.O. FOR TRANSPORT
--- NOTE | 2024-02-25 09:34 | P.PNGS_ITS ---
Subjective Subjective Date of Service: 02/25/24 Interval history: Pod 1 following laparoscopic appendectomy for acute appendicitis. Pain mainly located in the right lower quadrant this morning. She was able to tolerate some food without nausea or vomiting. She reports some difficulty with ambulation. Physical Exam 2 Vital Signs: Vital Signs: Last Vital Signs Temp 98.7 F 02/25/24 07:50 Pulse 59 02/25/24 07:50 Resp 16 02/25/24 07:50 BP 102/53 L 02/25/24 07:50 Pulse Ox 96 02/25/24 07:50 O2 Del Method Room Air 02/25/24 07:50 O2 Flow Rate 2 02/24/24 17:50 BMI result Body Mass Index 26.7 Const: General: no acute distress Nutritional Appearance: well nourished Orientation/consciousness: patient oriented x3 Limitations: no limitations HEENT: Head: Yes normocephalic and Yes atraumatic Resp: Effort & Inspection: normal respiratory effort GI: Other: Trocar incisions are clean, dry, and intact without redness or discharge. Mild tenderness to palpation of the left lower quadrant. No skin ecchymosis appreciated. Skin: Other: Warm, dry, no rash Neuro: General: patient oriented x3 Extrem: Other: No peripheral edema Objective Data Active Medications Acetaminophen (Acetaminophen 325 Mg Tablet) 650 mg PO QID PRN PRN Reason: headache, temp > 101 Ondansetron HCl (Ondansetron Hcl 4 Mg/2 Ml Vial) 4 mg IVPUSH QID PRN PRN Reason: Nausea Last Admin: 02/25/24 09:18 Dose: 4 mg Documented By: VALENTINE Oxycodone HCl (Oxycodone Hcl Immed Release 5 Mg Tablet) 5 mg PO Q6H PRN PRN Reason: Pain, Moderate(Pain Scale 4-6) Last Admin: 02/25/24 08:41 Dose: 5 mg Documented By: VALENTINE Oxycodone HCl (Oxycodone Hcl Immed Release 5 Mg Tablet) 10 mg PO Q6H PRN PRN Reason: Pain, Severe (Pain Scale 7-10) Zolpidem Tartrate (Zolpidem Tartrate 5 Mg Tablet) 5 mg PO BEDTIME PRN PRN Reason: Insomnia Labs 02/24/24 05:42 02/24/24 05:42 Labs: Laboratory Results - last 24 hr 02/24/24 09:33 Lactic Acid 1.0 Procedures Date of Service Date of Service: 02/25/24 Progress Note: A&P Assessment and plan (1) Acute appendicitis: Status: Acute (2) S/P appendectomy: Status: Acute Plan Pod 1 following laparoscopic appendectomy for acute appendicitis. Overall patient is doing well but continues to have mainly postoperative pain. She may be able to be discharged later today if more comfortable. I recommended she try p.o. medication rather than the intravenous pain meds. She expressed understanding and agrees with the plan. Time Spent With Patient Time: Total time managing care of this patient today ____ minutes. Quality Stroke Does the patient have a stroke diagnosis?: No VTE Prior VTE?: No VTE Risk Level:: Surgical - low VTE Device Contraindication: N/A - Device Ordered VTE Drug Contraindication: Treatment Not Indicated
[2024-02-25 12:00] VITALS: BP 112/54; PULSE 65; RESP 16; TEMP 36.4; O2SAT 97
--- NOTE | 2024-02-25 12:29 | HO.POSTANES ---
Post Anesthesia Evaluation Post Anesthesia Evaluation Date of Service: 02/24/24 Vital Signs: Vital Signs Temp Pulse Resp BP Pulse Ox O2 Del Method 02/25/24 07:50 98.7 F 59 16 102/53 L 96 Room Air 02/25/24 03:17 98.1 F 60 16 104/53 L 94 Room Air Anesthesia: General Endotracheal-GETA Mental Status: Awake Pain Control: Satisfactory Nausea/Vomiting: None Hydration: Adequate Anesthesia-Related Issues: No Anes. Related Issues
[2024-02-25 15:37] VITALS: BP 99/56; PULSE 67; RESP 17; TEMP 36.3; O2SAT 99
[2024-02-25] MEDS: 0.9 % Sodium Chloride 1,000 ML 999 ML IV (16:02)
--- NOTE | 2024-02-25 16:08 | PC.NURSE ---
1500 vitals BP 99/56 with machine 96/52 manually P 67 O2 99 on Room air T 97.[address] Baca made aware. 1L bolus of NS ordered and labs drawn. Dr Baca at bedside.
[2024-02-25 16:20] LABS: MANUAL DIFF FLAG NO
[2024-02-25 16:21] LABS: Basophils Percent Auto 0.2 % (0-2); Eosinophils Absolute Auto 0.1 X10*3/uL (0.0-0.4); Eosinophils Percent Auto 0.9 % (0-4); Hematocrit 35.1 % (37.0-47.0); Hemoglobin 12.2 g/dl (12.0-16.0); Imm Gran Abs Auto 0.02 X10*3/uL (0.00-0.03); Imm Gran Pct Auto 0.2 % (0.0-0.4); Lymphocytes Absolute Auto 2.8 X10*3/uL (1.2-4.9); Lymphocytes Percent Auto 34.5 % (20-40); Mean Corpuscular HGB Conc 34.8 g/dl (31.0-35.0); Mean Corpuscular Hemoglobin 31.6 pg (27.0-33.0); Mean Corpuscular Volume 90.9 fL (80.0-98.0); Mean Platelet Volume 10.6 fL (9.4-12.3); Monocytes Absolute Auto 0.6 X10*3/uL (0.1-1.2); Monocytes Percent Auto 7.1 % (2-11); Neutrophils Absolute Auto 4.6 x10*3/uL (2.0-8.3); Neutrophils Percent Auto 57.1 % (45-73); Platelet Count 161 X10*3/uL (160-400); Red Blood Count 3.86 X10*6/uL (4.20-5.50); Red Cell Distribution Width 11.9 % (11.0-16.0); White Blood Count 8.1 X10*3/uL (4.8-10.8)
[2024-02-25 16:52] LABS: Anion Gap 12 (12-20); Blood Urea Nitrogen 5 mg/dL (9-16); Calcium 8.8 mg/dL (8.4-10.2); Carbon Dioxide 26 mmol/L (22-29); Chloride 108 mmol/L (96-108); Creatinine Clr Calc Pharmacy 125.6; Estimated Glomerular Filt Rate > 60; Glucose Random 103 mg/dL (60-115); Potassium 3.7 mmol/L (3.3-5.1); Sodium 142 mmol/L (135-145)
[2024-02-25] MEDS: Acetaminophen 325 MG TABLET 650 MG PO (17:25)
--- NOTE | 2024-02-25 17:29 | PC.NURSE ---
GRAIN FARMER stated pt was coughing up Blood Upon assessment no resp distress, vss, blood tinged sputum noted, ? ET tube ? Primary RN Nat notified. Forwared to Gen Surg covering.
[2024-02-25] MEDS: Dextrose 5 % and Lactated Ring 1,000 ML 80 ML IVCONT (18:27)
[2024-02-25 19:40] VITALS: BP 102/60; PULSE 56; RESP 18; TEMP 36.1; O2SAT 99
[2024-02-26] VITALS: BP 103/50; PULSE 65; RESP 18; TEMP 36.3; O2SAT 98
[2024-02-26 03:27] VITALS: BP 92/63; PULSE 56; RESP 18; TEMP 36.4; O2SAT 94
[2024-02-26] MEDS: Acetaminophen 325 MG TABLET 650 MG PO (03:37)
[2024-02-26] MEDS: Dextrose 5 % and Lactated Ring 1,000 ML 80 ML IVCONT (05:57)
[2024-02-26] MEDS: oxyCODONE HCl Immed Release 5 MG TABLET PO (06:03)
[2024-02-26 07:50] VITALS: BP 104/53; PULSE 57; RESP 17; TEMP 36.3; O2SAT 95
--- NOTE | 2024-02-26 08:47 | MHC.CM.PN ---
DP: PT HAS BEEN MEDICALLY CLEARED FOR DC HOME, NO SERVICES. PT HAS OWN RIDE HOME.
--- NOTE | 2024-02-26 10:13 | PM.PNGS ---
Subjective Subjective Date of Service: 02/26/24 Interval history: Pod 2 following laparoscopic appendectomy. Overall feels improved but does still have some right lower quadrant abdominal pain. She tolerated her diet without nausea or vomiting. Physical Exam Vital Signs: Vital Signs: Last Vital Signs Temp 97.4 F 02/26/24 07:50 Pulse 57 02/26/24 07:50 Resp 17 02/26/24 07:50 BP 104/53 L 02/26/24 07:50 Pulse Ox 95 02/26/24 07:50 O2 Del Method Room Air 02/26/24 07:50 O2 Flow Rate 2 02/24/24 17:50 BMI result Body Mass Index 26.7 Const: General: no acute distress Nutritional Appearance: well nourished Orientation/consciousness: patient oriented x3 Limitations: no limitations HEENT: Head: Yes normocephalic and Yes atraumatic Resp: Effort & Inspection: normal respiratory effort GI: Other: Trocar incisions are clean, dry, and intact without redness or discharge. No skin ecchymosis appreciated. Skin: Other: Warm, dry, no rash Neuro: General: patient oriented x3 Extrem: Other: No peripheral edema Objective Data Labs 02/25/24 16:10 02/25/24 16:10 Labs: Laboratory Results - last 24 hr 02/25/24 16:10 MCV 90.9 MCH 31.6 MCHC 34.8 RDW 11.9 Plt Count 161 D MPV 10.6 Immature Gran % (Auto) 0.2 Neut % (Auto) 57.1 Lymph % (Auto) 34.5 [place] % (Auto) 7.1 Eos % (Auto) 0.9 Baso % (Auto) 0.2 Lymph # (Auto) 2.8 [place] # (Auto) 0.6 Eos # (Auto) 0.1 Baso # (Auto) 0.0 Abs Immat Gran (auto) 0.02 Absolute Neuts (auto) 4.6 Absolute Nucleated RBC 0.000 Nucleated RBC % (auto) 0.0 Anion Gap 12 Estim Creat Clear Calc 125.6 Estimated GFR > 60 Random Glucose 103 Calcium 8.8 D Hold Yellow Top See Note Microbiology Microbiology Results: Microbiology 02/24/24 09:47 Blood Culture - Preliminary Blood - Venous No growth after 24 hours. 02/24/24 09:33 Blood Culture - Preliminary Blood - Venous No growth after 24 hours. Procedures Date of Service Date of Service: 02/26/24 Progress Note: A&P Assessment and plan (1) S/P appendectomy: Status: Acute (2) Acute appendicitis: Status: Acute Plan Pod 2 following laparoscopic appendectomy. Her wounds remained clean, dry, and intact. Laboratories yesterday were normal. Patient be discharged to home with follow-up in the office in approximately 1 week. She is welcome to call sooner for any new concerns. Time Spent With Patient Time: Total time managing care of this patient today ____ minutes. Quality Stroke Does the patient have a stroke diagnosis?: No VTE Prior VTE?: No VTE Risk Level:: Surgical - low VTE Device Contraindication: N/A - Device Ordered VTE Drug Contraindication: Treatment Not Indicated
--- NOTE | 2024-02-26 11:43 | PM.DS ---
DS: Providers Provider Date of Service: 02/26/24 Date of admission: 02/25/24 09:00 Date of discharge: 02/26/24 Primary care physician: Janell Physician Attending physician on admission: Gold Baca Attending physician on discharge: Gold Baca DS: Diagnosis Discharge Diagnosis (1) S/P appendectomy: Status: Acute (2) Acute appendicitis: Status: Acute DS: Summary Hospital Course Hospital Course: HPI AT ADMISSION: Charles Abreu is a 33 year old female presenting with a 2 day history of abdominal pain beginning in a periumbilical location but now localized more to the right lower quadrant. The pain was associated with nausea and vomiting but no fever or chills. She denies a previous history of similar symptoms. She subsequently presented to the emergency department and was noted to be tender in the lower right abdomen. Laboratories revealed an elevated WBC. CT abdomen and pelvis revealed a markedly inflamed appendix with a fecalith within the appendix. Findings are suggestive of acute appendicitis. HOSPITAL COURSE: She was admitted to the surgical service for further management of acute appendicitis. On 02/24/24, laparoscopic appendectomy was performed by Dr. Baca without complication. She was found to have an acutely inflamed appendix wrapped within the mesentery of the terminal ileum with surrounding phlegmon. The patient tolerated the procedure well. She had an uncomplicated recovery course. She remained inpatient 2 nights for pain control. On the day of discharge, she was tolerating a solid diet without nausea or vomiting, had good pain control on oral analgesics and was ambulating without difficulty. Her abdomen was benign with appropriate post op tenderness and clean/intact dressings. She felt ready for discharge. She was discharged to home on 02/26/24 in stable condition. Status at Discharge Functional status at discharge: independent ambulation Overall status at discharge: patient is progressing back to baseline Time Attestation Discharge Coordination Time (in mins): 30 Quality: Safe Use of Opioids Does Pt have an Active Cancer Diagnosis on the Problem List?: No Quality: Stroke Does the patient have a stroke diagnosis?: No Physical Exam Vital Signs: Vital Signs: Last Vital Signs Temp 97.4 F 02/26/24 07:50 Pulse 57 02/26/24 07:50 Resp 17 02/26/24 07:50 BP 104/53 L 02/26/24 07:50 Pulse Ox 95 02/26/24 07:50 O2 Del Method Room Air 02/26/24 07:50 O2 Flow Rate 2 02/24/24 17:50 BMI result Body Mass Index 26.7 Const: General: comfortable, no acute distress and alert Orientation/consciousness: patient oriented x3 GI: Inspection: No distended and Yes incision (dressings c/d/i) Palpation (GI): Soft to palpation, Tenderness to palpation present (GI) (mild ) and no guarding Skin: General skin exam: no rashes or lesions noted Neuro: General: patient oriented x3 DS: Data Data Completed and Pending Pending studies at discharge: Pending at discharge 02/24/24 16:30 Surgical [PTH] Routine Labs on day of discharge: Preliminary micro results at discharge 02/24/24 09:47 Blood Culture - Preliminary Blood - Venous No growth after 48 hours. 02/24/24 09:33 Blood Culture - Preliminary Blood - Venous No growth after 48 hours. Discharge Plan Discharge Anticipated Discharge Date/Time: 02/26/24 08:18 Patient Disposition: Home, Self-Care Discharge Diagnosis: Acute appendicitis, S/P appendectomy Referrals: Gold Baca MD [Physician] - 1 Week Physician,Janell Orourke [Primary Care Provider] - 1 Week Discharge Medications: New oxycodone 5 mg tablet 5 mg PO Q6H PRN (Reason: pain (scale score 7-10)) Qty: 15 0RF Rx Instructions: Partial Fill upon patient request. Continued dextroamphetamine-amphetamine 10 mg tablet 1 tab PO QAM Discharge Orders: Discharge Order (Routine); Ordered 02/26/24 Ordered By: Gold Baca Diet: Advance to usual diet Activity on Discharge: No heavy lifting Stand Alone Forms: Patient Portal Discharge page Print Language: Yakut Activity Restrictions/Additional Instructions: If the incision area is tender, you may apply an ice pack for short intervals (No more than 20 minutes on, followed by at least 20 minutes off). Do not apply heat. Do not use creams, lotions, or topical antibiotics unless instructed to do so by your surgeon. These can cause infection or allergic reaction. Ok to shower. Call Your Doctor If: -Your temperature exceeds 101.5? F -You experience excessive pain or swelling -You have an unexpected reaction to medication -You have excessive bleeding -You experience continued vomiting/nausea -Your incision begins to separate -Your incision shows signs of infection such as increased redness, swelling, excessive pain, drainage (light blood or clear fluid is normal) or heat Care Plan Goals: Return to normal activity and diet. Health Concerns: Abdominal pain right lower quadrant Plan of Treatment: Laparoscopic appendectomy performed on 02/24/2024 Assessment: Acute appendicitis. Discharge Date/Time: 02/26/24 09:24
== END 2024-02-26 09:24 | disposition home or self-care (01) | DRG 234 ==
LOC: HO.ED 11:17 → HO.SSS 13:11 → HO.S3 19:53 → HO.SSS 02-25 09:10 → HO.S3 02-25 09:10
PROVIDERS: Nurse Practitioner Family; Admitting Provider Surgery; Emergency Provider Student in an Organized Health Care Education/Training Program; PCP Nurse Practitioner; Visit Provider Surgery
PROC: 0DTJ4ZZ Resection of Appendix, Percutaneous Endoscopic Approach (ICD-10-PCS; CPT 44970; principal; 2024-02-24 14:30)
DX: K35.80 Unspecified acute appendicitis (principal)
CPT/HCPCS: 36415; 74177; 80048; 80053; 81001; 81025; 83605; 83690; 85025; 87040; 88304; 99285; J0131; J0696; J1100; J1170; J1836; J1885; J2250; J2405; J2704; J2765; J3010; Q9967

== ENCOUNTER → 2024-02-24 06:11 | Outpatient (BNV) | payer MEDICAID, SELFPAY | PROVIDERS: Emergency Provider Student in an Organized Health Care Education/Training Program; Visit Provider Surgery | DX: K35.30 Acute appendicitis with localized peritonitis, without perforation or gangrene (principal) | CPT/HCPCS: 44970; 99024; 99222; 99238 ==

== ENCOUNTER 2024-03-13 09:26 | Outpatient (AMB) | payer MEDICAID, SELFPAY ==
--- NOTE | 2024-03-13 09:31 | A.OFFVIS_ITS ---
Vital Signs 03/13/24 09:32 Height 5 ft 7 in Weight 165 lb BMI 25.8 BP 126/60 Blood Pressure Location Lt brachial Position Sitting Pulse 77 Intake Visit Reasons: S/P appendectomy Intake Note: Patient is seen in office for post op assessment post laparoscopic appendectomy. 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 She reported some soreness in the left l ower quadrant incision with a underlying mass. She denies fever, chills, nausea or vomiting. Her appetite has been good. FORMERLY [facility] Medical History Acute appendicitis Surgical History S/P appendectomy (02/24/24) History of (~2011) Social History Household Members: Family Housing: House Do you presently have visiting nurse or other home services: No Patient Tobacco Use Status: Never used Tobacco e-Cigarette/Vaping Use: Never Used Substance Use Type: Marijuana service: No Current occupational status: employed Gender identity: Female Female Reproductive History Menstrual Age of Menarche: 12 Physical Exam Vital Signs: Last Vital Signs Pulse 77 03/13/24 09:32 BP 126/60 03/13/24 09:32 BMI result Body Mass Index 25.8 Const General: no acute distress Nutritional Appearance: well nourished Resp Effort & Inspection: normal respiratory effort GI Other: Trocar incisions are clean, dry redness or discharge. No hernia noted Valsalva maneuvers. Normal healing ridge palpable. Extrem Other: No edema Assessment & Plan Assessment & Plan (1) Acute appendicitis: Code(s): K35.80 - Unspecified acute appendicitis Category: Medical Plan Patient returns following laparoscopic appendectomy performedn 02/24/2024. She tolerated the procedure well and her wounds are healing nicely without evidence of infection or hernia. May resume normal activity without restrictions and should return as needed. Coding Level of Care Code Global (98732) Diagnoses Acute appendicitis K35.80
[2024-03-13 09:32] VITALS: BP 126/60; PULSE 77; BMI 25.8
== END 2024-03-13 10:00 | disposition home or self-care (01) ==
PROVIDERS: PCP Nurse Practitioner; Visit Provider Surgery
DX: K35.80 Unspecified acute appendicitis (principal)
CPT/HCPCS: 99024

== ENCOUNTER → 2024-03-13 09:26 | Outpatient (BNVA) | payer MEDICAID, SELFPAY | PROVIDERS: PCP Nurse Practitioner; Visit Provider Surgery | DX: Z09 Encounter for follow-up examination after completed treatment for conditions other than malignant neoplasm (principal); Z87.19 Personal history of other diseases of the digestive system; Z90.49 Acquired absence of other specified parts of digestive tract | CPT/HCPCS: 99212 ==

== ENCOUNTER 2025-02-19 13:32 | Emergency (ER) | payer MEDICAID, SELFPAY ==
[2025-02-19 13:38] VITALS: BP 148/72; PULSE 92; RESP 18; TEMP 37; O2SAT 99; BMI 24.3
--- NOTE | 2025-02-19 13:44 | ECG_ITS ---
Test Reason : DIZZINESS Blood Pressure : */* mmHG Vent. Rate : 111 BPM Atrial Rate : 111 BPM P-R Int : 114 ms QRS Dur : 76 ms QT Int : 376 ms P-R-T Axes : 69 52 15 degrees QTcB Int : 511 ms Sinus tachycardia Nonspecific T wave abnormality Abnormal ECG No previous ECGs available Referred By: David Youssef Electronically Signed By: TAY CONNOR
[2025-02-19] MEDS: Meclizine HCl 25 MG TABLET 50 MG PO (13:48)
--- NOTE | 2025-02-19 13:59 | ED.GENADULT ---
HPI - General Adult General Chief complaint: Dizziness Stated complaint: Vertigo 3 days History of Present Illness HPI narrative: Patient left before completion of treatment by ED provider Related Data Home Medications ?Medication ?Instructions ?Recorded ?Confirmed dextroamphetamine-amphetamine 10 1 tab PO QAM 02/24/24 03/13/24 mg tablet Allergies Allergy/AdvReac Type Severity Reaction Status Date / Time No Known Allergies Allergy Verified 02/19/25 13:40 [No Known Allergies*] PMFSH Past Medical History Medical History Acute appendicitis Surgical History S/P appendectomy (02/24/24) History of (~2011) Social History Social History Household Members: Family Housing: House Do you presently have visiting nurse or other home services: No Patient Tobacco Use Status: Never used Tobacco e-Cigarette/Vaping Use: Never Used Substance Use Type: Marijuana Advance Directives: No Advance Directives Information Provided: No service: No Current occupational status: employed Gender identity: Female Physical Exam ED Vital Signs: Vital Signs - 24 hr 02/19/25 13:38 Temperature 98.6 F Pulse Rate 92 Respiratory Rate 18 Blood Pressure 148/72 H Pulse Oximetry 99 Oxygen Delivery Method Room Air BMI result Body Mass Index 24.3 Course Course Course Narrative: RME: 34-year-old female history of vertigo presents to ED for 3 days of dizziness changes position of the head. Patient states this is not new. Patient denies any slurred speech, facial droop, paralysis of extremities, loss of vision. Patient states no relief with her vertigo meds at home. NIH score is 0. Labs EKG ordered. Negative for any neuro deficits Medications Administered Discontinued Medications Generic Name Dose Route Start Last Admin Trade Name Freq PRN Reason Stop Dose Admin Meclizine HCl 50 mg 02/19/25 13:44 02/19/25 13:48 Meclizine Hcl 25 Mg Tablet PO 02/19/25 13:45 50 mg ONCE ONE Administration Medical Decision Making Lab Data 02/19/25 16:04 02/19/25 14:35 Labs: Lab Results 02/19/25 02/19/2525 Range/Units 14:35 14:36 16:04 WBC Cancelled 8.9 RBC Cancelled 4.57 Hgb Cancelled 14.6 Hct Cancelled 40.9 MCV Cancelled 89.5 MCH Cancelled 31.9 MCHC Cancelled 35.7 H RDW Cancelled 11.8 Plt Count Cancelled 220 D MPV Cancelled 10.7 Immature Gran % (Auto) Cancelled 0.2 Neut % (Auto) Cancelled 62.9 Lymph % (Auto) Cancelled 29.6 [place] % (Auto) Cancelled 5.4 Eos % (Auto) Cancelled 1.1 Baso % (Auto) Cancelled 0.8 Lymph # (Auto) Cancelled 2.6 [place] # (Auto) Cancelled 0.5 Eos # (Auto) Cancelled 0.1 Baso # (Auto) Cancelled 0.1 Abs Immat Gran (auto) Cancelled 0.02 Absolute Neuts (auto) Cancelled 5.6 Absolute Nucleated RBC Cancelled 0.000 Nucleated RBC % (auto) Cancelled 0.0 PT Cancelled INR Cancelled APTT Cancelled Sodium 140 (135-145) mmol/L Potassium 4.0 (3.3-5.1) mmol/L Chloride 109 H (96-108) mmol/L Carbon Dioxide 24 (22-29) mmol/L Anion Gap 11 L (12-20) BUN 9 (9-16) mg/dL Creatinine 0.67 (0.5-1.4) mg/dL Estim Creat Clear Calc 112.9 Estimated GFR > 60 Random Glucose 103 (60-115) mg/dL Calcium 9.1 (8.4-10.2) mg/dL Total Bilirubin 0.1 (0.0-1.0) mg/dL AST 20 (5-31) U/L ALT 17 (0-31) U/L Alkaline Phosphatase 59 (39-117) U/L Troponin I High Sens < 2.7 (<3.5-17.0) ng/L Total Protein 7.2 (6.5-8.0) g/dL Albumin 4.3 (3.5-5.0) g/dL Urine Color Yellow Urine Appearance Clear Urine pH 7.0 (5.0-9.0) Ur Specific [place] 1.010 (1.005-1.025) Urine Protein Negative (Neg-Trace) mg/dL Urine Glucose (UA) Negative (Negative) mg/dL Urine Ketones Negative (Negative) mg/dL Urine Blood Negative (Negative) Urine Nitrite Negative (Negative) Ur Leukocyte Esterase Negative (Negative) Urine Test NEGATIVE (NEGATIVE) Discharge Plan Discharge Clinical Impression: Dizziness Patient Disposition: Left W/O Completing Treatment Prescriptions: No Action dextroamphetamine-amphetamine 10 mg tablet 1 tab PO QAM Discharge Date/Time: 02/19/25 20:07
[2025-02-19 14:56] LABS: Appearance Urine Clear; Color Urine Yellow; Glucose Urine UA Negative (Negative); Leukocyte Esterase Urine Negative (Negative); Nitrite Urine Negative (Negative); UPreg QC Valid YES; Urine Blood Negative (Negative); Urine Ketones Negative (Negative); Urine Pregnancy NEGATIVE (NEGATIVE); Urine Protein Negative (Neg-Trace)
[2025-02-19 15:15] LABS: Alanine Aminotransferase 17 U/L (0-31); Albumin Level 4.3 g/dL (3.5-5.0); Alkaline Phosphatase 59 U/L (39-117); Anion Gap 11 (12-20); Aspartate Amino Transferase 20 U/L (5-31); Bilirubin Total 0.1 mg/dL (0.0-1.0); Blood Urea Nitrogen 9 mg/dL (9-16); Calcium 9.1 mg/dL (8.4-10.2); Carbon Dioxide 24 mmol/L (22-29); Chloride 109 mmol/L (96-108); Creatinine Clr Calc Pharmacy 112.9; Estimated Glomerular Filt Rate > 60; Glucose Random 103 mg/dL (60-115); Sodium 140 mmol/L (135-145); Total Protein 7.2 g/dL (6.5-8.0)
[2025-02-19 15:29] LABS: Troponin-I High Sensitivity < 2.7 ng/L (<3.5-17.0)
[2025-02-19 16:08] LABS: MANUAL DIFF FLAG NO
[2025-02-19 16:10] LABS: Basophils Absolute Auto 0.1 X10*3/uL (0.0-0.2); Basophils Percent Auto 0.8 % (0-2); Eosinophils Absolute Auto 0.1 X10*3/uL (0.0-0.4); Eosinophils Percent Auto 1.1 % (0-4); Hematocrit 40.9 % (37.0-47.0); Hemoglobin 14.6 g/dl (12.0-16.0); Imm Gran Abs Auto 0.02 X10*3/uL (0.00-0.03); Imm Gran Pct Auto 0.2 % (0.0-0.4); Lymphocytes Absolute Auto 2.6 X10*3/uL (1.2-4.9); Lymphocytes Percent Auto 29.6 % (20-40); Mean Corpuscular HGB Conc 35.7 g/dl (31.0-35.0); Mean Corpuscular Hemoglobin 31.9 pg (27.0-33.0); Mean Corpuscular Volume 89.5 fL (80.0-98.0); Mean Platelet Volume 10.7 fL (9.4-12.3); Monocytes Absolute Auto 0.5 X10*3/uL (0.1-1.2); Monocytes Percent Auto 5.4 % (2-11); Neutrophils Absolute Auto 5.6 x10*3/uL (2.0-8.3); Neutrophils Percent Auto 62.9 % (45-73); Platelet Count 220 X10*3/uL (160-400); Red Blood Count 4.57 X10*6/uL (4.20-5.50); Red Cell Distribution Width 11.8 % (11.0-16.0); White Blood Count 8.9 X10*3/uL (4.8-10.8)
== END 2025-02-19 20:07 | disposition left against medical advice (07) ==
PROVIDERS: Physician Assistant; Emergency Provider Emergency Medicine; PCP Nurse Practitioner
DX: R42 Dizziness and giddiness (principal); R00.0 Tachycardia, unspecified; Z79.899 Other long term (current) drug therapy
CPT/HCPCS: 36415; 80053; 81003; 81025; 84484; 85025; 85610; 85730; 93005; 99283

== ENCOUNTER → 2025-02-19 13:44 | Outpatient (BNV) | payer MEDICAID, SELFPAY | PROVIDERS: Emergency Provider Emergency Medicine; PCP Nurse Practitioner; Visit Provider Internal Medicine | DX: R00.0 Tachycardia, unspecified (principal) | CPT/HCPCS: 93010 ==